=== PATIENT | female | born 1960 | race Caucasian/White ===

== ENCOUNTER 2021-01-18 07:43 | Day surgery (SDC) | payer BC ==
[~2021-01-18] VITALS: Ht 170.2 cm; Wt 75.2 kg
[2021-01-18] MEDS ORDERED: MULVITA PO (07:57)
[2021-01-18] MEDS ORDERED: OTEZLA30 MG PO (07:57)
== END 2021-01-18 09:50 | disposition home or self-care (01) ==
LOC: ORSCSDS 07:43
PROVIDERS: Internal Medicine Gastroenterology
PROC: 0DBK8ZX Excision of Ascending Colon, Via Natural or Artificial Opening Endoscopic, Diagnostic (ICD-10-PCS; principal; 2021-01-18 09:00)
DX: Z12.11 Encounter for screening for malignant neoplasm of colon (principal); D12.2 Benign neoplasm of ascending colon; K64.8 Other hemorrhoids; Z79.899 Other long term (current) drug therapy
CPT/HCPCS: 88305; J0461; J2405; J2704; J7120

== ENCOUNTER → 2021-11-16 | Outpatient (CLI) | payer BC ==
[~2021-11-16] MED LIST: MULVITA PO; OTEZLA30 MG PO
== END | disposition home or self-care (01) ==
LOC: LAB SHORT 11:28
DX: L57.0 Actinic keratosis (principal)
CPT/HCPCS: 88305